=== PATIENT | male | born 1935 | race Caucasian/White ===

== ENCOUNTER 2017-09-03 08:48 | Inpatient (IN) | payer MEDICARE, OTHER ==
[~2017-09-03] VITALS: Ht 177.8 cm; Wt 104.8 kg
[~2017-09-03 08:48] MED LIST: ADULT LOW DOSE81 MG PO; ADVAIR HFA115 MCG/21 INH; ALLOPURINOL 10100 M1 PO; AZITHROMYCIN 2250 MG PO; CALCIUM 600 +1 EAC1 PO; CARVEDILOL6.25 MG; CARVEDILOL6.25 MG PO; CEFTIN 250 MG250 MG PO; COZAAR 50 MG TA50 MG PO; DESONIDE 0.05%60 M1 TOP; DULCOLAX STOOL100 MG PO; FIBER500 MG PO; FINASTERIDE5 MG PO; FLECTOR PATCH1 EA; FLEXERIL PO; FLOMAX PO; FLOMAX0.4 MG PO; FLONASE 0.05%50 MCG NASAL; FOSAMAX 70 MG T70 MG PO; FUROSEMIDE 20 M20 M1 PO; IRON325 PO; MULTIVITAMINS PO; NORCO 5-325 TA1 EACH PO; POTASSIUM PO; PREDNISONE 10 M10 MG PO; PRILOSEC 20 MG20 MG PO; PROTOPIC30 GM; SIMVASTATIN40 MG PO; SINGULAIR 10 MG10 M1 PO; SYNTHROID50 MCG PO; VITAMIN D-40400 UNIT PO; VOLTAREN GEL 1100 G1
[2017-09-03 09:00] VITALS: BP 132/71
[2017-09-03] MEDS ORDERED: SYNTHROID75 MCG PO (09:08)
[2017-09-03] MEDS ORDERED: LASIX 40 MG TAB40 M2 PO (09:09)
[2017-09-03] MEDS ORDERED: KLOR-CON 1010 MEQ PO (09:09)
[2017-09-03] MEDS ORDERED: PROLIA60 MG/1 ML SUBQ (09:10)
[2017-09-03] MEDS ORDERED: CORN SILK PO (09:10)
[2017-09-03 09:30] LABS: ABSOLUTE BASOPHILS 0.1 thou/uL (0.0-0.2); ABSOLUTE EOSINOPHILS 0.4 thou/uL (0.0-0.7); ABSOLUTE LYMPHOCYTES 2.7 thou/uL (0.8-5.3); ABSOLUTE NEUTROPHILS 3.1 thou/uL (1.6-8.1); BASOPHILS 1.4 %; HEMATOCRIT 38.2 % (42.0-52.0); HEMOGLOBIN 12.4 gm/dL (14.0-18.0); MCH 31.9 pg (26.0-34.0); MCHC 32.4 g/dL (28.0-37.0); MCV 98.3 fL (80.0-100.0); MONOCYTES 13.5 %; NUCLEATED RBCS 0 /100WBC; PLATELET COUNT* 190 thou/uL (150-400); POLYS 42.1 %; RBC 3.89 mil/uL (4.50-6.00); RDW-CV 14.8 % (10.5-14.5); WBC 7.2 thou/uL (4.0-11.0)
[2017-09-03 09:37] LABS: ANION GAP 7 mmol/L (7-16); APTT 24.7 Seconds (25.0-31.3); BUN 28 mg/dL (7-18); CALCIUM 8.6 mg/dL (8.5-10.1); CHLORIDE 105 mmol/L (98-107); CO2 27 mmol/L (21-32); GLUCOSE 103 mg/dL (70-99); INR 1.1; POTASSIUM 3.7 mmol/L (3.5-5.1); PROTIME 10.5 Seconds (9.20-11.50); SODIUM 139 mmol/L (136-145)
[2017-09-03 09:44] LABS: ALBUMIN 3.4 g/dL (3.4-5.0); ALKALINE PHOSPHATASE 109 U/L (46-116); LIPASE 89 U/L (73-393); SGOT 39 U/L (15-37); SGPT 36 U/L (30-65); TOTAL BILIRUBIN 0.5 mg/dL (<0.1-1.0); TOTAL PROTEIN 7.4 g/dL (6.4-8.2); TROPONIN-I LEVEL <0.06 ng/mL (<0.06)
[2017-09-03 10:14] LABS: URINE BILIRUBIN NEGATIVE (Negative); URINE BLOOD NEGATIVE (Negative); URINE CLARITY CLEAR; URINE COLOR YELLOW; URINE GLUCOSE-RANDOM NEGATIVE (Negative); URINE KETONES NEGATIVE (Negative); URINE LEUKOCYTES-REFLEX NEGATIVE (Negative); URINE NITRITE-REFLEX NEGATIVE (Negative); URINE PROTEIN NEGATIVE (Negative); URINE SPECIFIC GRAVITY <= 1.005 (1.005-1.030); URINE UROBILINOGEN 0.2 E.U./dl (0.2-1.0)
--- NOTE | 2017-09-03 11:58 | EKG ---
[place] [address] ELECTROCARDIOGRAM REPORT Name: KEAGAN HERNANDEZ Room: [place] [address] ADM IN .R.#: [id number] Admission: 09/03/17 Attend Phys: Thanh Zhou MD Discharge: Date of : 39 Report #: [id number] THIS REPORT FOR: //name// [facility] ED Test Date: 2017-09-03 Test Time: 09:08:38 Pat Name: KEAGAN HERNANDEZ Department: Room: [facility] Gender: Row Boss: Juanita SEN : 1935 Requested By: Homero Singer Order Number: [id number] MD: Ronald Ugarte Measurements Intervals [place] Rate: 72 P: 22 VT: 215 QRS: -27 QRSD: 145 T: 136 QT: 407 QTc: 446 Interpretive Statements Sinus rhythm Multiple premature complexes, vent & supraven Borderline prolonged VT interval Left bundle branch block Compared to ECG 11/24/2015 16:24:06 pvc now noted Electronically Signed On 09-03-2017 11:58:01 SOCIAL WORK MANAGER by Ronald Ugarte [email or web address] <ELECTRONICALLY SIGNED> By: Ronald Ugarte MD, [facility] 09/03/17 1158 0908 0908 Ronald Ugarte MD, [facility] /EPI
[2017-09-03 14:22] VITALS: BP 137/62
[2017-09-03 15:35] VITALS: BP 111/54
[2017-09-03 16:00] VITALS: BP 121/63
--- NOTE | 2017-09-03 16:14 | EKG ---
[place] [address] ELECTROCARDIOGRAM REPORT Name: KEAGAN HERNANDEZ Room: [place] [address] ADM IN .R.#: [id number] Admission: 09/03/17 Attend Phys: Thanh Zhou MD Discharge: Date of : 39 Report #: [id number] THIS REPORT FOR: //name// [facility] ED Test Date: 2017-09-03 Test Time: 09:33:02 Pat Name: KEAGAN HERNANDEZ Department: Room: [facility] Gender: M Morning Caregiver: BASSEM : 1935 Requested By: Homero Singer Order Number: [id number] MD: Ronald Ugarte Measurements Intervals [place] Rate: 68 P: 28 FL: 222 QRS: -27 QRSD: 147 T: 138 QT: 415 QTc: 442 Interpretive Statements Sinus rhythm Atrial premature complex Prolonged FL interval Left bundle branch block Compared to ECG 09/03/2017 09:08:38 pvc no longer seen Electronically Signed On 09-03-2017 16:14:08 CONTRACTS SPECIALIST by Ronald Ugarte [email or web address] <ELECTRONICALLY SIGNED> By: Ronald Ugarte MD, [facility] 09/03/17 1614 0933 0933 Ronald Ugarte MD, [facility] /EPI
--- NOTE | 2017-09-03 19:43 | NUR ---
REPORT RECEIVED FROM Guanaco EUBANKS IN E.D. AT 1513. PT ARRIVED TO TELEMETRY AT 1550. PT IN BED, BED IN LOW AND LOCKED POSITION, CALL BUTTON AND PERSONAL ITEMS IN PT REACH. AT SIDE. PT A&O X4, ENVIRONMENTAL SCIENTISTS TRACING NSR, LBBB AND OCC. PAC'S. VSS ON RA, AFEBRILE, PERRL, SKIN INTACT WITH SCATTERED BRUISING AND SKIN DISCOLORATION. UP SBA, STEADY GAIT, OCC. USES CANE R/T BACK PAIN. PT HAS BACK STIMULATOR, PLACED 2016. RIGHT EAR HEALED WITH SCAR FROM SKIN CANCER REMOVAL. ADMISSION AND SEPSIS SCREEN COMPLETED. MEDS RECONCILED. LCTAB. PT LAUGHING, SMILING, LIKES TO TELL JOKES. LEFT WRIST 22 GAUGE IV SALINE LOCKED. PT DENIES PAIN. SCANT EDEMA IN LE. REPORT TO BATCH TESTER FOR CONTINUED CARES.
[2017-09-03 20:00] VITALS: BP 117/61
[2017-09-04] VITALS: BP 100/52
--- NOTE | 2017-09-04 03:31 | NUR ---
ASSUMED PT CARE AT 1930, PT IS A&OX4, PT DENIES ANY PAIN OR NEEDS AT THIS TIME. PT IS TRACING NSR ON THE MONITOT WITH A 1DAVB AND OCCASIONAL PAC'S PT IS ON RA SATTING MID TO HIGH 90'S. PT HAD A NEW IV PLACED DUE TO PHELBITIS. PT SLEPT WELL THOUGHOUT THE NIGHT. BED IN LOW POSITION, CALL LIGHT IN REACH. HOURLY ROUNDING COMPLETED FOR PT SAFETY.
[2017-09-04 04:00] VITALS: BP 104/45
[2017-09-04 05:34] LABS: ABSOLUTE BASOPHILS 0.1 thou/uL (0.0-0.2); ABSOLUTE EOSINOPHILS 0.4 thou/uL (0.0-0.7); ABSOLUTE LYMPHOCYTES 2.6 thou/uL (0.8-5.3); ABSOLUTE MONOCYTES 0.8 thou/uL (0.0-1.2); ABSOLUTE NEUTROPHILS 2.6 thou/uL (1.6-8.1); BASOPHILS 1.3 %; CALCIUM 8.9 mg/dL (8.5-10.1); EOSINOPHILS 6.5 %; HEMOGLOBIN 11.4 gm/dL (14.0-18.0); LYMPHOCYTES 39.7 %; MCH 32.7 pg (26.0-34.0); MCHC 33.7 g/dL (28.0-37.0); MCV 97.1 fL (80.0-100.0); MONOCYTES 12.8 %; NUCLEATED RBCS 0 /100WBC; PLATELET COUNT* 159 thou/uL (150-400); POLYS 39.7 %; POTASSIUM 3.9 mmol/L (3.5-5.1); WBC 6.5 thou/uL (4.0-11.0)
[2017-09-04 08:11] VITALS: BP 104/45
[2017-09-04 09:30] VITALS: BP 120/59
[2017-09-04 13:09] VITALS: BP 104/45
[2017-09-04] MEDS ORDERED: FLOMAX0.4 MG PO ×2 (13:53→14:04)
[2017-09-04 14:39] VITALS: BP 104/45
--- NOTE | 2017-09-04 16:32 | NUR ---
ASSUMED CARES AT BEDSIDE REPORT AT 0700. PT IN BED, BED IN LOW AND LOCKED POSITION, CALL BUTTON AND PERSONAL ITEMS IN PERSONAL REACH. FALL PRECAUTIONS IN PLACE. PT A&O X4, LAUGHING, SMILING, TALKATIVE. LICENSE DISTRIBUTOR TRACING NSR/BBB/1 DG AVB. LCTAB, VSS ON RA, AFEBRILE, SKIN INTACT, PT DENIES PAIN, PT UP AT [place], CANE USED OCC. R/T CHRONIC BACK PAIN. RIGHT WRIST 20 GAUGE IV PATENT TO FLUSH, NO S/S OF INFECTION, SALINE LOCKED. PT CLEARED FOR DISCHARGE WITH FOLLOW UP APPTS FOR CARDIOLOGY AND PCP. AT SIDE. IV AND TELE REMOVED, PT BELONGINGS PACKED, ROOM CHECKED. PT EDUCATED ON DISCHARGE ORDERS AND STROKE SIGNS/SYMPTOMS - RISKS. PT TAKEN BY W/C WITH NURSING STAFF TO FRONT OF HOSPITAL WITH SPOUSE TO GO HOME IN CAR. PT DISCHARGE SUCCESSFUL AND COMPLETED AT 1435. PT STABLE AT DISCHARGE. NURSE ASSISTED PT PUTTING ON SEATBELT IN CAR.
--- NOTE | 2017-09-04 16:38 | CON ---
[address] [address] CONSULTATION Name: KEAGAN HERNANDEZ Room: [address] IN M.R.#: [id number] Admission: 09/03/17 Attend Phys: Thanh Zhou MD Discharge: Date of : 39 Report #: [id number] THIS REPORT FOR: //name// CC: Thanh Sarmiento DO DATE OF SERVICE: 09/03/2017 PRIMARY CARE PHYSICIAN: Gail Sarmiento MD HISTORY OF PRESENT ILLNESS: The patient is an 82-year-old white male who I was asked to see in the Emergency Room today after he had a lightheaded spell. The history is obtained from the patient as well as from some old records. The patient states that he has had a long history of congestive heart failure. He apparently had an episode of atrial fibrillation back in the . In 2004, he was found to have an ejection fraction of 25% and had a defibrillator implanted at [facility]. He notes he was exercising at one point and the defibrillator actually shocked as hard. However, he had no previous history of syncope. In 2007, he had apparently 12 shocks from his defibrillator. He was told there is a lead fracture. Echocardiogram showed ejection fraction of 50%. The doctors at [facility] apparently decided to cap his lead and removed the defibrillator generator. He has done well since that time. He actually went to see my partner, Dr. Owens last fall for cardiac followup. He had an echocardiogram last April here at [place] that showed an ejection fraction of 35%. The patient notes recently he has been doing well with no significant chest pain, shortness of breath, palpitations. This morning, he was sitting in a chair when he suddenly felt nauseated and lightheaded. It lasted about a minute and resolved. However, he is still sitting in the chair and later again had an episode where he felt as if he was going to pass out. His brought him to the Emergency Room today. While in the Emergency Room, the patient was noted to have an episode of sinus bradycardia down into the 30s. This resolved spontaneously. He was admitted for further evaluation and treatment. He denies recent vomiting, bleeding, diarrhea. PAST MEDICAL HISTORY: Otherwise significant for knee arthroscopy, shoulder surgery, cataract extraction. He has history of chronic kidney disease. He has a nerve stimulator in place. He has a history of hypertension and hyperlipidemia. MEDICATIONS: Consists of losartan, aspirin, carvedilol, allopurinol, Synthroid, potassium, Lasix for chronic edema, simvastatin, Proscar, omeprazole. ALLERGIES: He has intolerance to from [place] [address] CONSULTATION Name: KEAGAN HERNANDEZ Room: [address] IN .R.#: [id number] Admission: 09/03/17 Attend Phys: Thanh Zhou MD Discharge: Date of : 37 Report #: [id number] FAMILY HISTORY: Negative for heart disease. SOCIAL HISTORY: He is . He and his live in [place]. He is retired from the [employer]. He also was a mail deliverer. Quit smoking years ago, rarely drinks alcohol. REVIEW OF SYSTEMS: He has had no history of stroke, asthma. He has had a peptic ulcer in the past, chronic kidney disease. He had a skin cancer removed. No psychiatric illness. No chronic skin condition. PHYSICAL EXAMINATION: GENERAL: Revealed an elderly large male lying in bed. He appeared in no acute distress. VITAL SIGNS: He had a blood pressure of 120/60, pulse is 60. He is afebrile. HEENT: He was anicteric. Conjunctivae pink. Mucous membranes moist. NECK: Veins do not appear distended. No carotid bruits. CHEST: Clear to auscultation. CARDIOVASCULAR: Regular rate without murmur. ABDOMEN: Obese, soft, nontender. EXTREMITIES: Had pitting edema up to the mid tibial area. Dorsalis pedis pulse cannot be palpated. SKIN: Cool and dry. NEUROLOGIC: Nonfocal. LABORATORY DATA: His ECG showed a sinus rhythm with a PAC. There was a left bundle branch block. His workup in the Emergency Room today, he had portable chest x-ray that showed cardiomegaly, single defibrillator lead in place. No pulmonary edema. His lab work, sodium 139, BUN 28, creatinine 2.0, which is unchanged from 2013. Liver function studies are normal. Troponin 0.06. TSH 1.6, T4 1.2. White blood cell count 7.2, hemoglobin 12.4. IMPRESSION AND RECOMMENDATIONS: 1. Lightheaded spell. Possibly related bradycardia. I would recommend discontinuing the small dose of beta edgar. If he develops symptomatic bradycardia, he would require pacemaker. 2. Cardiomyopathy. The patient has been on the beta edgar, ARB and diuretics. 3. Chronic kidney disease. 4. Chronic back pain. The patient has a stimulator in place. 5. Obesity. 6. Previous history of atrial fibrillation. <ELECTRONICALLY SIGNED> By: Ronald Ugarte MD, [facility] 09/04/17 1638 1402 [id number] Chel Ugarte MD, FACC /nt
== END 2017-09-04 14:25 | disposition home or self-care (01) | DRG 309 ==
LOC: M.ERS 08:48 → M.TBA-ER 10:25 → M.2W 10:25
PROVIDERS: Emergency Medicine Emergency Medical Services; ADMIT Internal Medicine
DX: R00.1 Bradycardia, unspecified (principal); N18.4 Chronic kidney disease, stage 4 (severe); I13.0 Hypertensive heart and chronic kidney disease with heart failure and stage 1 through stage 4 chronic kidney disease, or unspecified chronic kidney disease; I50.22 Chronic systolic (congestive) heart failure; E78.5 Hyperlipidemia, unspecified; I42.9 Cardiomyopathy, unspecified; I48.91 Unspecified atrial fibrillation; G89.29 Other chronic pain; M54.9 Dorsalgia, unspecified; E66.9 Obesity, unspecified; E03.9 Hypothyroidism, unspecified; M81.0 Age-related osteoporosis without current pathological fracture; Z87.891 Personal history of nicotine dependence; Z95.810 Presence of automatic (implantable) cardiac defibrillator; Z68.33 Body mass index [BMI] 33.0-33.9, adult; Z79.82 Long term (current) use of aspirin; Z98.49 Cataract extraction status, unspecified eye; Z79.899 Other long term (current) drug therapy; Z88.8 Allergy status to other drugs, medicaments and biological substances

== ENCOUNTER → 2017-12-01 | Outpatient (CLI) | payer MEDICARE, OTHER ==
[~2017-12-01] MED LIST changes: +CORN SILK PO; +KLOR-CON 1010 MEQ PO; +LASIX 40 MG TAB40 M2 PO; +PEPCID40 MG PO; +PROLIA60 MG/1 ML SUBQ; +SODIUM BICARBO650 M3 PO; +SYNTHROID75 MCG PO; +TOPROL XL25 MG PO; +XARELTO15 MG PO; +ZYRTEC 10 MG TA10 MG PO
== END ==
LOC: M.RAD 11:12
DX: M43.17 Spondylolisthesis, lumbosacral region (principal); M85.89 Other specified disorders of bone density and structure, multiple sites; M81.0 Age-related osteoporosis without current pathological fracture; M16.0 Bilateral primary osteoarthritis of hip

== ENCOUNTER → 2018-02-25 | Outpatient (CLI) | payer MEDICARE, OTHER ==
--- NOTE | 2018-02-25 13:08 | 2DMMODE ---
[place] [address] 2 D/M-MODE ECHOCARDIOGRAM Name: KEAGAN HERNANDEZ Room: [facility]#: [id number] Admission: 02/25/18 Attend Phys: Tamela Hilario, Discharge: Date of : 39 Date of Service: 02/25/18 1308 Report #: [id number] THIS REPORT FOR: //name// APPROVED REPORT Study performed: 02/25/2018 09:13:35 EXAM: Comprehensive 2D, Doppler, and color-flow Echocardiogram Patient Location: Out-Patient Status: routine BSA: 2.15 HR: 84 bpm BP: 117/62 mmHg Other Information Study Quality: Good Indications Cardiomyopathy 2D Dimensions IVSd: 10.18 (7-11mm) LVOT Diam: 20.45 (18-24mm) LVDd: 47.14 mm PWd: 11.25 (7-11mm) Ascending Ao: 30.72 (22-36mm) LVDs: 36.45 (25-40mm) Aortic Root: 32.92 mm Volumes Left Atrial Volume (Systole) LA ESV Index: 17.90 mL/m2 Aortic Valve AoV Peak Baltazar.: 0.82 m/s AO Peak Gr.: 2.68 mmHg LVOT Max P.48 mmHg AO Mean Gr.: 1.49 mmHg LVOT Mean P.43 mmHg LVOT Max V: 0.79 m/s AO V2 VTI: 13.02 cm LVOT Mean V: 0.56 m/s TREVOR (VTI): 2.97 cm2 LVOT V1 VTI: 11.76 cm Mitral Valve E/A Ratio: 0.59 MV Decel. Time: 256.92 ms MV E Max Baltazar.: 0.52 m/s MV PHT: 74.[place] [address] 2 D/M-MODE ECHOCARDIOGRAM Name: KEAGAN HERNANDEZ Room: [facility]#: [id number] Admission: 02/25/18 Attend Phys: Tamela Hilario, Discharge: Date of : 39 Date of Service: 02/25/18 1308 Report #: [id number] MVA (PHT): 2.95 cm2 TDI E/Lateral E': 8.67 E/Medial E': 8.67 Medial E' Baltazar.: 0.06 m/s Lateral E' Baltazar.: 0.06 m/s Pulmonary Valve PV Peak Baltazar.: 0.91 m/s PV Peak Gr.: 3.32 mmHg Tricuspid Valve RAP Estimate: 5.00 mmHg TR Peak Gr.: 20.67 mmHg RVSP: 25.67 mmHg PA Pressure: 25.67 mmHg Left Ventricle The left ventricle is normal size. paradoxical septum consistent with a paced rhythm There is global hypokinesis of the left ventricle. There is normal left ventricular wall thickness. Left ventricular systolic function is moderately decreased. LVEF is 30-35%. The left ventricular diastolic function is normal. Right Ventricle The right ventricle is normal size. The right ventricular systolic function is normal. Pacemaker lead is present in the right ventricle. Atria The left atrium size is normal. The right atrium size is normal. Aortic Valve The aortic valve is normal in structure. No aortic regurgitation is present. There is no aortic valvular stenosis. Mitral Valve The mitral valve is normal in structure. Mild mitral regurgitation. No evidence of mitral valve stenosis. Tricuspid Valve The tricuspid valve is normal in structure. Mild tricuspid regurgitation. estimated pa pressure 30 mm Hg Pulmonic Valve The pulmonary valve is normal in structure. There is no pulmonic [place] [address] 2 D/M-MODE ECHOCARDIOGRAM Name: KEAGAN HERNANDEZ Room: [facility]#: [id number] Admission: 02/25/18 Attend Phys: Tamela Hilario, Discharge: Date of : 39 Date of Service: 02/25/18 1308 Report #: [id number] Great Vessels The aortic root is normal in size. IVC is not well visualized. Pericardium There is no pericardial effusion. <Conclusion> LVEF is 30-35%. paradoxical septum consistent with a paced rhythm There is global hypokinesis of the left ventricle. Mild mitral regurgitation. Mild tricuspid regurgitation. estimated pa pressure 30 mm Hg <ELECTRONICALLY SIGNED> By: Ronald Ugarte MD, [facility] 02/25/18 1308 1308 1308 Ronald Ugarte MD, FACC /INF
== END ==
LOC: M.CRD 08:41
DX: I08.1 Rheumatic disorders of both mitral and tricuspid valves (principal); I50.22 Chronic systolic (congestive) heart failure; I42.8 Other cardiomyopathies

== ENCOUNTER 2018-04-05 07:20 | Emergency (ER) | payer MEDICARE, OTHER ==
[~2018-04-05] VITALS: Ht 177.8 cm; Wt 97.5 kg
[~2018-04-05 07:20] MED LIST changes: -PEPCID40 MG PO; -SODIUM BICARBO650 M3 PO; -TOPROL XL25 MG PO; -XARELTO15 MG PO; -ZYRTEC 10 MG TA10 MG PO
[2018-04-05] MEDS ORDERED: XARELTO15 MG PO (07:37)
[2018-04-05] MEDS ORDERED: TOPROL XL25 MG PO (07:37)
[2018-04-05] MEDS ORDERED: SODIUM BICARBO650 M3 PO (07:41)
[2018-04-05 08:00] LABS: HEMATOCRIT 35.4 % (42.0-52.0); HEMOGLOBIN 11.8 gm/dL (14.0-18.0); MCHC 33.4 g/dL (28.0-37.0); MCV 95.7 fL (80.0-100.0); MPV 9.4 fl. (7.2-11.1); NUCLEATED RBCS 0 /100WBC; PLATELET COUNT* 212 thou/uL (150-400); RDW-CV 14.7 % (10.5-14.5); WBC 7.8 thou/uL (4.0-11.0)
[2018-04-05] MEDS ORDERED: ZYRTEC 10 MG TA10 MG PO (08:08)
[2018-04-05] MEDS ORDERED: PEPCID40 MG PO (08:08)
[2018-04-05 08:25] LABS: CALCIUM 8.2 mg/dL (8.5-10.1); CREATININE 2.3 mg/dL (0.6-1.3); POTASSIUM 3.9 mmol/L (3.5-5.1)
[2018-04-05 08:28] LABS: ALBUMIN 2.9 g/dL (3.4-5.0); TOTAL BILIRUBIN 0.5 mg/dL (<0.1-1.0); TOTAL PROTEIN 6.3 g/dL (6.4-8.2)
[2018-04-05 08:48] VITALS: BP 117/51
[2018-04-05 09:37] LABS: ABSOLUTE BASOPHILS 0.1 thou/uL (0.0-0.2); ABSOLUTE EOSINOPHILS 1.2 thou/uL (0.0-0.7); ABSOLUTE LYMPHOCYTES 1.8 thou/uL (0.8-5.3); ABSOLUTE MONOCYTES 0.9 thou/uL (0.0-1.2); ABSOLUTE NEUTROPHILS 3.7 thou/uL (1.6-8.1); ATYPICAL LYMPHS 4 %; PLATELET ESTIMATE ADEQUATE
== END 2018-04-05 08:48 | disposition home or self-care (01) ==
LOC: M.ERS 07:20
PROVIDERS: Family Medicine
DX: L29.9 Pruritus, unspecified (principal); R21 Rash and other nonspecific skin eruption; L53.9 Erythematous condition, unspecified; I50.9 Heart failure, unspecified; N18.4 Chronic kidney disease, stage 4 (severe); M81.0 Age-related osteoporosis without current pathological fracture; Z87.891 Personal history of nicotine dependence; Z88.8 Allergy status to other drugs, medicaments and biological substances

== ENCOUNTER 2019-08-18 11:10 | Inpatient (IN) | payer MEDICARE, OTHER ==
[~2019-08-18] VITALS: Ht 152.4 cm; Wt 101.2 kg
--- NOTE | ~2019-08-18 | PROC ---
[address] [address] PROCEDURE REPORT Name: KEAGAN HERNANDEZ Room: [address] IN .R.#: [id number] Admission: 08/18/19 Attend Phys: Keagan Pérez MD Discharge: 08/21/19 Date of : 37 Report #: [id number] THIS REPORT FOR: //name// For GI report, please see the Provation report in Perceptive 7 content. By: 0639Medical Records Staff RAFAELA /CASSIE
[~2019-08-18 11:10] MED LIST changes: +PEPCID40 MG PO; -PRILOSEC 20 MG20 MG PO; +PRILOSEC PO; +SODIUM BICARBO650 M3 PO; +TOPROL XL25 MG PO; +VITAMIN D-40010 MCG PO; -VITAMIN D-40400 UNIT PO; +XARELTO15 MG PO; +ZYRTEC 10 MG TA10 MG PO
[2019-08-18 11:19] VITALS: BP 136/58
[2019-08-18 12:22] LABS: ABSOLUTE EOSINOPHILS 0.2 thou/uL (0.0-0.7); ABSOLUTE LYMPHOCYTES 2.5 thou/uL (0.8-5.3); ABSOLUTE MONOCYTES 0.6 thou/uL (0.0-1.2); ABSOLUTE NEUTROPHILS 4.1 thou/uL (1.6-8.1); BASOPHILS 0.6 %; EOSINOPHILS 2.4 %; HEMATOCRIT 36.5 % (42.0-52.0); HEMOGLOBIN 12.1 gm/dL (14.0-18.0); LYMPHOCYTES 33.4 %; MCH 32.2 pg (26.0-34.0); MCHC 33.3 g/dL (28.0-37.0); MCV 96.7 fL (80.0-100.0); MONOCYTES 8.5 %; MPV 9.5 fl. (7.2-11.1); NUCLEATED RBCS 0 /100WBC; PLATELET COUNT* 156 thou/uL (150-400); POLYS 55.1 %; RBC 3.77 mil/uL (4.50-6.00); RDW-CV 14.2 % (10.5-14.5); WBC 7.4 thou/uL (4.0-11.0)
[2019-08-18 12:43] LABS: CALCIUM 8.6 mg/dL (8.5-10.1); CREATININE 2.1 mg/dL (0.6-1.3); POTASSIUM 4.3 mmol/L (3.5-5.1)
[2019-08-18 12:48] LABS: ALBUMIN 3.4 g/dL (3.4-5.0); TOTAL BILIRUBIN 0.3 mg/dL (<0.1-1.0)
[2019-08-18 14:10] VITALS: BP 112/52
[2019-08-18 14:30] VITALS: BP 120/61
[2019-08-18 15:00] VITALS: BP 113/51
--- NOTE | 2019-08-18 15:03 | EKG ---
[place] [address] ELECTROCARDIOGRAM REPORT Name: KEAGAN HERNANDEZ Room: [address] ADM IN .R.#: [id number] Admission: 08/18/19 Attend Phys: Keagan Pérez MD Discharge: Date of : 37 Report #: [id number] THIS REPORT FOR: //name// [facility] ED Test Date: 2019-08-18 Test Time: 11:32:53 Pat Name: KEAGAN HERNANDEZ Department: Room: [facility] Gender: M Senior Financial: : 1935 Requested By: Homero Singer Order Number: [id number] MD: Ronald Ugarte Measurements Intervals [place] Rate: 82 P: 46 IL: 210 QRS: -28 QRSD: 142 T: 128 QT: 412 QTc: 482 Interpretive Statements Sinus rhythm Atrial premature complexes Left bundle branch block Compared to ECG 09/03/2017 09:33:02 First degree AV block no longer present Electronically Signed On 08-18-2019 15:02:24 SYSTEM SPECIALIST by Ronald Ugarte [email or web address] <ELECTRONICALLY SIGNED> By: Ronald Ugarte MD, [facility] 08/18/19 1502 1132 1132 Ronald Ugarte MD, [facility] /EPI
[2019-08-18] MEDS ORDERED: TYLENOL WITH CO1 TA1 PO (15:07)
[2019-08-18] MEDS ORDERED: ACETAMINOPHEN500 MG PO (15:09)
[2019-08-18 16:16] LABS: HEMATOCRIT 34.6 % (42.0-52.0); HEMOGLOBIN 11.7 gm/dL (14.0-18.0)
[2019-08-18 19:45] VITALS: BP 126/68
[2019-08-19] VITALS: BP 120/53
[2019-08-19 05:45] LABS: HEMATOCRIT 28.9 % (42.0-52.0); HEMOGLOBIN 9.8 gm/dL (14.0-18.0); MCH 32.6 pg (26.0-34.0); MCHC 34.1 g/dL (28.0-37.0); MCV 95.5 fL (80.0-100.0); MPV 10.1 fl. (7.2-11.1); RBC 3.02 mil/uL (4.50-6.00); RDW-CV 14.2 % (10.5-14.5); WBC 6.3 thou/uL (4.0-11.0)
[2019-08-19 06:02] LABS: CALCIUM 7.3 mg/dL (8.5-10.1); CREATININE 1.9 mg/dL (0.6-1.3); MAGNESIUM 1.8 mg/dL (1.8-2.4); POTASSIUM 4.2 mmol/L (3.5-5.1)
[2019-08-19 08:30] VITALS: BP 104/43
[2019-08-19 11:53] VITALS: BP 121/40
[2019-08-19 18:14] VITALS: BP 129/64
[2019-08-19 19:50] VITALS: BP 121/66
[2019-08-19 20:36] LABS: HEMATOCRIT 34.9 % (42.0-52.0)
[2019-08-20] VITALS (7 sets, daily range): BP systolic 100–128; BP diastolic 39–90
[2019-08-20 05:18] LABS: HEMATOCRIT 30.3 % (42.0-52.0); HEMOGLOBIN 10.3 gm/dL (14.0-18.0); MCH 32.2 pg (26.0-34.0); MCV 94.7 fL (80.0-100.0); MPV 9.1 fl. (7.2-11.1); RBC 3.19 mil/uL (4.50-6.00); RDW-CV 14.1 % (10.5-14.5); WBC 6.9 thou/uL (4.0-11.0)
[2019-08-20 06:04] LABS: POTASSIUM 4.4 mmol/L (3.5-5.1)
[2019-08-21 04:44] VITALS: BP 116/65
[2019-08-21 05:08] LABS: HEMATOCRIT 32.3 % (42.0-52.0); HEMOGLOBIN 10.9 gm/dL (14.0-18.0)
[2019-08-21 08:00] VITALS: BP 105/61
[2019-08-21 10:09] VITALS: BP 105/61
[2019-08-21 11:13] VITALS: BP 105/61
[2019-08-21 11:14] VITALS: BP 105/61
--- NOTE | 2019-08-22 09:30 | CON ---
[address] [address] CONSULTATION Name: KEAGAN HERNANDEZ Room: [address] IN M.R.#: [id number] Admission: 08/18/19 Attend Phys: Keagan Pérez MD Discharge: 08/21/19 Date of : 37 Report #: [id number] THIS REPORT FOR: //name// CC: Keagan Sarmiento DO DICTATED BY: Janey Bruner [facility] DATE OF SERVICE: 08/19/2019 Please note at the time of this dictation, the patient was seen and physically examined by myself. REASON FOR CONSULTATION: Melanotic stool and some bright red bloody stools. HISTORY OF PRESENT ILLNESS: This is a pleasant 84-year-old gentleman, who states that on Friday evening, the patient noted to have a very black tarry stool. He states normally his bowels move once a day and they are soft and formed, this was a little bit looser. He then was awakened, later on in the nighttime and had to get up and use the bathroom and again had a very large black tarry stool. With, he noted a little bit of some bright red blood at the very end. Again, he had 2 more of these similar type stools the next morning, which is unusual for him, that were very loose and very black and tarry in appearance, prompting him to come in to be seen in the Emergency Room. He denied any nausea, vomiting, any abdominal pain, no weight loss. He does take iron supplementation daily. He has not had any decreased appetite. He denies any NSAID use. He denies any acid reflux issues. However, he states in the past, he has had a previous peptic ulcer. The patient was last seen by us in 2011. He had a 1 cm hiatal hernia and he was dilated for dysphagia with a 54-Micronesian with no resistance noted. He has had no complaints of any dysphagia at that time. Last colonoscopy was in 2009. He had external hemorrhoids and diverticulosis was noted. He states that he has been doing well and has had no issues. Hemoglobin on admission was 11.7. He has dropped down to 9.8. He has had no more melanotic stool since his arrival to the hospital. ALLERGIES: METHANOL, GOLD KENNY FOOT. MEDICATIONS FROM HOME: Include Xarelto, Toprol, Zyloprim, iron, Zocor, Synthroid, fiber Synthroid, Prolia, vitamin D, Cozaar, Dulcolax, potassium, Lasix, omeprazole 20 and a multivitamin. PAST MEDICAL HISTORY: Stage 4 kidney disease, congestive heart failure, atrial fibrillation, on anticoagulant therapy, osteoporosis. PAST SURGICAL HISTORY: He had a left rotator [place] [address] CONSULTATION Name: KEAGAN HERNANDEZ Room: [address] IN [facility]#: [id number] Admission: 08/18/19 Attend Phys: Keagan Pérez MD Discharge: 08/21/19 Date of : 37 Report #: [id number] arthroscopic knee surgeries, bone spur removed from his right shoulder. He did have a defibrillator in place that was recently removed. He still the leads in place, however. He does have a back stimulator in place as well and 5 fractures noted in his back in 2017. FAMILY HISTORY: Positive for his daughter for uterine cancer. SOCIAL HISTORY: Denies any alcohol, past use of tobacco many years ago and denies any illegal drug use. REVIEW OF SYSTEMS: Twelve-point review of systems is essentially negative except what is mentioned in the HPI. PHYSICAL EXAMINATION: VITAL SIGNS: Temperature 36.7, pulse 74, respirations 15, blood pressure 104/43. HEART: Regular rate and rhythm. LUNGS: Clear. ABDOMEN: Soft, positive bowel sounds in all 4 quadrants with no masses or tenderness noted. LABORATORY DATA: Hemoglobin this morning is 9.8, white count is 6.3, platelets are 151, BUN is 32, creatinine 1.9, GFR of 34. IMPRESSION: 1. Melanotic stool. 2. Bright red blood per rectum. 3. Anticoagulant therapy, Xarelto, atrial fibrillation. 4. Chronic kidney disease. 4. Family history of uterine cancer, daughter. PLAN: 1. Continue Protonix drip. 2. EGD today with Dr. Atwood. 3. Further recommendations to be made once the procedure has been performed. Thank you for allowing us to participate in this patient's care. Please do not hesitate to call with any questions in regard to this consult. <ELECTRONICALLY SIGNED> By: Corey Atwood DO 08/22/19 0930 1152 1642Corey Atwood DO /nt
== END 2019-08-21 11:10 | disposition home or self-care (01) | DRG 393 ==
LOC: M.ERS 11:10 → M.2W 12:59 → M.TBA-ER 12:59 → M.2W 14:19
PROVIDERS: Emergency Medicine Emergency Medical Services; ADMIT Internal Medicine
PROC: 0DJ08ZZ Inspection of Upper Intestinal Tract, Via Natural or Artificial Opening Endoscopic (ICD-10-PCS; principal; 2019-08-19)
PROC: 0DBH8ZZ Excision of Cecum, Via Natural or Artificial Opening Endoscopic (ICD-10-PCS; principal; 2019-08-19)
DX: D12.0 Benign neoplasm of cecum (principal); N17.0 Acute kidney failure with tubular necrosis; D68.32 Hemorrhagic disorder due to extrinsic circulating anticoagulants; I50.22 Chronic systolic (congestive) heart failure; N18.4 Chronic kidney disease, stage 4 (severe); D68.69 Other thrombophilia; T45.515A Adverse effect of anticoagulants, initial encounter; K64.8 Other hemorrhoids; I48.91 Unspecified atrial fibrillation; K27.9 Peptic ulcer, site unspecified, unspecified as acute or chronic, without hemorrhage or perforation; M81.0 Age-related osteoporosis without current pathological fracture; E03.9 Hypothyroidism, unspecified; K64.4 Residual hemorrhoidal skin tags; K44.9 Diaphragmatic hernia without obstruction or gangrene; G89.29 Other chronic pain; M54.9 Dorsalgia, unspecified; Z79.899 Other long term (current) drug therapy; Z91.048 Other nonmedicinal substance allergy status; Z87.891 Personal history of nicotine dependence; Z79.01 Long term (current) use of anticoagulants; Z80.8 Family history of malignant neoplasm of other organs or systems; Z86.010 Personal history of colon polyps; Y92.009 Unspecified place in unspecified non-institutional (private) residence as the place of occurrence of the external cause

== ENCOUNTER → 2020-04-11 | Outpatient (CLI) | payer MEDICARE, OTHER ==
[~2020-04-11] MED LIST changes: +ACETAMINOPHEN500 MG PO; +NON-ASPIRIN EX500 M1 PO; +OMEPRAZOLE 20 M20 M1 PO; +TYLENOL WITH CO1 TA1 PO
[2020-04-11 11:09] LABS: ABSOLUTE BASOPHILS 0.1 thou/uL (0.0-0.2); ABSOLUTE EOSINOPHILS 0.5 thou/uL (0.0-0.7); ABSOLUTE LYMPHOCYTES 2.9 thou/uL (0.8-5.3); ABSOLUTE MONOCYTES 0.7 thou/uL (0.0-1.2); ABSOLUTE NEUTROPHILS 3.1 thou/uL (1.6-8.1); BASOPHILS 0.9 %; EOSINOPHILS 6.5 %; HEMATOCRIT 39.7 % (42.0-52.0); HEMOGLOBIN 13.4 gm/dL (14.0-18.0); MCH 32.8 pg (26.0-34.0); MCHC 33.8 g/dL (28.0-37.0); MCV 96.9 fL (80.0-100.0); MONOCYTES 9.7 %; NUCLEATED RBCS 0 /100WBC; PLATELET COUNT* 212 thou/uL (150-400); POLYS 42.9 %; RBC 4.09 mil/uL (4.50-6.00); RDW-CV 14.3 % (10.5-14.5); WBC 7.3 thou/uL (4.0-11.0)
[2020-04-11 11:18] LABS: APTT 29.6 Seconds (25.0-31.3); INR 1.1; PROTIME 11.4 Seconds (9.20-11.50)
[2020-04-11 11:28] LABS: ALBUMIN 3.8 g/dL (3.4-5.0); CALCIUM 8.6 mg/dL (8.5-10.1); CREATININE 2.2 mg/dL (0.6-1.3); POTASSIUM 4.1 mmol/L (3.5-5.1); TOTAL BILIRUBIN 0.4 mg/dL (<0.1-1.0); TOTAL PROTEIN 7.3 g/dL (6.4-8.2)
[2020-04-11 12:39] LABS: ESR (SEDRATE) 15 mm/hr (0-20)
--- NOTE | 2020-04-11 16:30 | EKG ---
[place] [address] ELECTROCARDIOGRAM REPORT Name: KEAGAN HERNANDEZ Room: [facility]#: [id number] Admission: 04/11/20 Attend Phys: Corey Mendieta Discharge: Date of : 39 Date of Service: 04/11/20 1045 Report #: [id number] THIS REPORT FOR: //name// [facility] Test Date: 2020-04-11 Test Time: 10:45:07 Pat Name: KEAGAN HERNANDEZ Department: Room: Gender: Laboratory Analyst: : 1935 Requested By: Corey Rojo Order Number: [id number] MD: Renan Nieves Measurements Intervals [place] Rate: 73 P: 50 MA: 133 QRS: 0 QRSD: 116 T: 46 QT: 427 QTc: 471 Interpretive Statements Ventricular-paced rhythm No further analysis attempted due to paced rhythm Compared to ECG 08/18/2019 11:32:53 Sinus rhythm no longer present Atrial premature complex(es) no longer present Left bundle-branch block no longer present Electronically Signed On 04-11-2020 16:29:59 CDT by Renan Nieves [email or web address] <ELECTRONICALLY SIGNED> By: Renan Nieves MD, FAC 04/11/20 1629 1045 1045 Renan Nieves MD, FAC /EPI
[2020-04-12 03:06] LABS: GLYCOHEMOGLOBIN (HGB A1C) 5.5 % (4.8-5.6)
== END ==
LOC: M.LAB 07:20
PROVIDERS: ATTEND Orthopaedic Surgery
DX: Z01.812 Encounter for preprocedural laboratory examination (principal); M17.12 Unilateral primary osteoarthritis, left knee; Z51.81 Encounter for therapeutic drug level monitoring; Z20.828 Contact with and (suspected) exposure to other viral communicable diseases; E11.9 Type 2 diabetes mellitus without complications; Z79.01 Long term (current) use of anticoagulants; Z86.010 Personal history of colon polyps

== ENCOUNTER 2020-04-20 06:31 | Observation (INO) | payer MEDICARE, OTHER ==
[~2020-04-20] VITALS: Ht 177.8 cm; Wt 93.4 kg
--- NOTE | ~2020-04-20 | OP ---
[facility] [address] [place] [address] OPERATIVE REPORT Name: KEAGAN HERNANDEZ Room: [address] IN M.R.#: [id number] Admission: 04/20/20 Attend Phys: Ching Flood Discharge: Date of : 39 Report #: [id number] THIS REPORT FOR: //name// cc: Gail Sarmiento Linda J. DO ~ CC: Corey Beaver DICTATED BY: Haris Archibald DO DATE OF SERVICE: 04/20/2020 PREOPERATIVE DIAGNOSIS: Left knee end-stage degenerative joint disease. POSTOPERATIVE DIAGNOSIS: Left knee end-stage degenerative joint disease. SURGEON: Dr. Corey Rojo. HUMAN SERVICES SUPERVISOR: 1. Dr. Haris Archibald. 2.. Torsten Carter DO OPERATION PERFORMED: Left total knee arthroplasty. ANESTHESIA TYPE: General with preprocedural regional block and intraoperative capsular block. ESTIMATED BLOOD LOSS: 100 mL. SPECIMENS REMOVED: None. COMPLICATIONS: None. TOURNIQUET TIME: 65 minutes at 300 mmHg. CONDITION: The patient is stable to PACU. IMPLANTS: [employer] Evolution total knee system: 1. Seven medial pivot femoral component. 2. Seven medial pivot tibial baseplate. 3. A 12 mm polyethylene insert. 4. A 35 mm polyethylene patella. INDICATION FOR PROCEDURE: The patient is a pleasant 84-year-old male with [address] [address] OPERATIVE REPORT Name: KEAGAN HERNANDEZ Room: [place] [address] ADM IN M.R.#: [id number] Admission: 04/20/20 Attend Phys: Ching Flood Discharge: Date of : 39 Report #: [id number] longstanding left knee pain for quite some time. All conservative measures have failed to give him significant relief. The discomfort is starting to affect of his activities of daily living and quality of life. Radiographs showed end-stage degenerative changes mostly confined to the medial compartment, the patellofemoral compartment. Turning into varus deformity recommendation was made for total knee arthroplasty. We discussed the alternatives, benefits and risks to include, but not limited to damage to neurovascular structures, continuation of pain, intraoperative postoperative fracture, failure of implants, postoperative DVT, pulmonary embolism, CA or any other imponderables secondary to being taken back to the operative suite. The patient expressed understanding of the aforementioned and wished to proceed. DESCRIPTION OF PROCEDURE: The patient was met in the preoperative area. The correct side was marked. He was then taken back to the operative suite and transferred in supine position on a well-padded operative table. He was given the benefit of general anesthesia. A well-padded tourniquet was applied to the left proximal thigh. The left lower extremity was then sterilely prepped and draped in normal standard fashion. Timeout was performed, which correct patient, side, site, procedure to be performed and antibiotics in the form of 2 grams Ancef being administered was agreed upon by all participation. Left lower extremity was elevated for exsanguination and the tourniquet was taken to 300 mmHg. Ultimately inflated for a total of 65 minutes throughout the case. Midline incision was taken down through the skin and subcutaneous tissues developed in the medial and lateral subcutaneous sleeves. A new knife was taken to the capsule to form a medial parapatellar arthrotomy. Patella was everted after developing the medial and lateral subperiosteal sleeves. Knee was taken into maximal flexion. The intramedullary femoral drill was used followed by the intramedullary femoral component. This was set at 5 degrees valgus for the left. This was pinned in place. Depth was verified with lorie wing. The distal femoral cut was made. The distal femoral guide was removed. The AP sizer of the femur was then taken and placed on the posterior femoral condyle, sized to be a 7, the distal femoral 4-in-1 cutting block was placed and pinned. The anterior, posterior and anterior and posterior chamfer cuts were made. The pins were removed and the 4-in-1 cutting guide was removed. All excess osteophytes were removed. The peripheral tibial adhesions in the meniscus were then removed. A PCL retractor was placed and the tibia was carried forward. The extramedullary tibial guide was placed and pinned into place, taking approximately 10 mm off the medial cut, but this was measured with lorie wing height and pinned into place. The tibial cut was made. The remainder of the medial and lateral meniscus were excised along with the cruciates. Tibia was sized to be approximately a size 7. This was pinned into place. The size 7 femur was malleted on and the anterior patellar groove was cut with the protective sleeve in place. A size 12 mm polyethylene insert was placed and this was felt to have good symmetry balance. Attention was then taken to the patella. Electrocautery was used to denervate the periphery of the patella. Patella was cut freehand measuring 23 mm before the cut and 15 mm afterwards. [address] [address] OPERATIVE REPORT Name: KEAGAN HERNANDEZ Room: [address] IN [employer]bay.Jaya.#: [id number] Admission: 04/20/20 Attend Phys: Ching Flood Discharge: Date of : 39 Report #: [id number] This was sized to be a size 35. The patella clamp was applied and the 3 patellar peg holes were cut. The patella and all the trial components were taken through range of motion. Full extension to flexion with no deficits. He was stable to varus and valgus at all degrees of motion and had good mid flexion stability to anterior drawer and posterior drawer. Patella tracked appropriately. These components were felt to be appropriate at least sized for the individual, the finals were pulled. The trial femur and patellar button were removed. Attention was then taken to the tibia. The intramedullary part of the tibia was opened with a guide tower with a reamer followed by punch. These were all then removed. The bone ends of the tibia, femur, and patella were all irrigated under pulse lavage. Cement was mixed on the back table and applied to the bony surfaces as well as the backs of the implants. Final implants were malleted into place. The cement was allowed to harden and set up with a size 14 polyethylene insert under pressure. The cement was appropriately solidified. The 14 mm polyethylene insert was removed. A size 12 trial was then placed. This was felt to have the best varus valgus stability, full extension and flexion from the knee. This was removed. Pulsavac was performed to the tibial baseplate. All excess cement and soft tissue was excised. The final size 12 polyethylene insert was malleted into place with good final seating. Femur was used on the tibia. The capsule was thoroughly irrigated and lavaged with the intracapsular block being administered. Simple interrupted 1-0 Vicryl was used to approximate the capsule, followed by #1 running Stratafix suture. The capsule was irrigated followed by inverted interrupted 2-0 Vicryl followed by a running 3-0 Stratafix. Dermabond was applied to the incision followed by sterile Mepilex. The patient was awoken from general anesthesia and taken to the postanesthesia care unit in stable condition after all sponge and needle counts were correct x 2. The patient was in stable condition. By: [id number] Rojo DO /luis alberto
[2020-04-20 08:48] VITALS: BP 115/53
[2020-04-20 16:49] VITALS: BP 96/65
[2020-04-20 20:40] VITALS: BP 100/47
[2020-04-21] VITALS: BP 94/41
[2020-04-21 04:00] VITALS: BP 104/38
[2020-04-21 09:19] VITALS: BP 96/48
[2020-04-21 09:44] VITALS: BP 96/48
[2020-04-21 10:19] LABS: HEMATOCRIT 30.3 % (42.0-52.0); HEMOGLOBIN 10.2 gm/dL (14.0-18.0)
== END 2020-04-21 12:20 | disposition home health service (06) ==
LOC: M.PRE → M.TBA 06:31 → M.ORTHSURG 06:31 → M.TBA 06:31 → M.PRE 10:34 → M.TBA 11:16 → M.PRE 11:51 → M.ORTHSURG 16:30
PROVIDERS: Orthopaedic Surgery; ADMIT Internal Medicine; ATTEND Internal Medicine
DX: M17.12 Unilateral primary osteoarthritis, left knee (principal); N18.4 Chronic kidney disease, stage 4 (severe); R63.0 Anorexia; R07.89 Other chest pain; G89.29 Other chronic pain; K63.5 Polyp of colon; L29.9 Pruritus, unspecified; I49.5 Sick sinus syndrome; R53.1 Weakness; J18.9 Pneumonia, unspecified organism; I50.20 Unspecified systolic (congestive) heart failure; I48.91 Unspecified atrial fibrillation; M81.0 Age-related osteoporosis without current pathological fracture; Z95.810 Presence of automatic (implantable) cardiac defibrillator; Z98.890 Other specified postprocedural states; Z79.82 Long term (current) use of aspirin; Z79.899 Other long term (current) drug therapy

== ENCOUNTER → 2020-08-17 | Outpatient (CLI) | payer MEDICARE, OTHER ==
[~2020-08-17] MED LIST changes: +TRAMADOL 50 MG50 MG PO
== END ==
LOC: M.PC 08:07
PROVIDERS: ATTEND Anesthesiology Pain Medicine
DX: M54.5 Low back pain (principal); I50.9 Heart failure, unspecified; N18.4 Chronic kidney disease, stage 4 (severe); Z79.899 Other long term (current) drug therapy; Z88.8 Allergy status to other drugs, medicaments and biological substances; Z95.0 Presence of cardiac pacemaker

== ENCOUNTER → 2020-08-22 | Outpatient (CLI) | payer MEDICARE, OTHER | END | disposition home or self-care (01) | LOC: M.PC 09:15 | PROVIDERS: ATTEND Anesthesiology Pain Medicine | DX: M54.16 Radiculopathy, lumbar region (principal); M54.5 Low back pain; I50.20 Unspecified systolic (congestive) heart failure; N18.4 Chronic kidney disease, stage 4 (severe); M81.0 Age-related osteoporosis without current pathological fracture; I48.91 Unspecified atrial fibrillation; M10.9 Gout, unspecified; R00.0 Tachycardia, unspecified; I95.0 Idiopathic hypotension; E03.9 Hypothyroidism, unspecified; I44.7 Left bundle-branch block, unspecified; N40.0 Benign prostatic hyperplasia without lower urinary tract symptoms; K92.2 Gastrointestinal hemorrhage, unspecified; Z91.018 Allergy to other foods; Z95.0 Presence of cardiac pacemaker ==

== ENCOUNTER → 2020-10-31 | Outpatient (CLI) | payer MEDICARE, OTHER | LOC: M.PC 10:55 | PROVIDERS: ATTEND Anesthesiology Pain Medicine | DX: M54.16 Radiculopathy, lumbar region (principal); N18.4 Chronic kidney disease, stage 4 (severe); I48.91 Unspecified atrial fibrillation; M10.9 Gout, unspecified; R00.0 Tachycardia, unspecified; I50.20 Unspecified systolic (congestive) heart failure; M81.0 Age-related osteoporosis without current pathological fracture; I95.0 Idiopathic hypotension; E03.9 Hypothyroidism, unspecified; I44.7 Left bundle-branch block, unspecified; N40.0 Benign prostatic hyperplasia without lower urinary tract symptoms; K92.2 Gastrointestinal hemorrhage, unspecified; Z95.0 Presence of cardiac pacemaker; Z98.890 Other specified postprocedural states; Z68.31 Body mass index [BMI] 31.0-31.9, adult; Z88.8 Allergy status to other drugs, medicaments and biological substances; Z79.891 Long term (current) use of opiate analgesic; Z79.899 Other long term (current) drug therapy ==

== ENCOUNTER → 2020-11-07 | Outpatient (CLI) | payer MEDICARE, OTHER ==
[~2020-11-07] MED LIST changes: +LEVO-T50 MCG PO; +MULTI-VITAMIN1 EAC5 PO
== END | disposition home or self-care (01) ==
LOC: M.PC 08:16
PROVIDERS: ATTEND Anesthesiology Pain Medicine
DX: M54.16 Radiculopathy, lumbar region (principal); G89.29 Other chronic pain; N18.4 Chronic kidney disease, stage 4 (severe); I50.20 Unspecified systolic (congestive) heart failure; I48.91 Unspecified atrial fibrillation; E03.9 Hypothyroidism, unspecified; M81.0 Age-related osteoporosis without current pathological fracture; N40.0 Benign prostatic hyperplasia without lower urinary tract symptoms; M10.9 Gout, unspecified; Z98.890 Other specified postprocedural states; Z79.899 Other long term (current) drug therapy; Z79.01 Long term (current) use of anticoagulants; Z95.0 Presence of cardiac pacemaker; Z88.8 Allergy status to other drugs, medicaments and biological substances

== ENCOUNTER → 2020-12-26 | Outpatient (CLI) | payer MEDICARE, OTHER | END | disposition home or self-care (01) | LOC: M.PC 08:00 | PROVIDERS: ATTEND Anesthesiology Pain Medicine | DX: M54.16 Radiculopathy, lumbar region (principal); G89.29 Other chronic pain; E03.9 Hypothyroidism, unspecified; I48.91 Unspecified atrial fibrillation; N40.0 Benign prostatic hyperplasia without lower urinary tract symptoms; N18.4 Chronic kidney disease, stage 4 (severe); M81.0 Age-related osteoporosis without current pathological fracture; M10.9 Gout, unspecified; I50.9 Heart failure, unspecified; Z98.890 Other specified postprocedural states; Z79.899 Other long term (current) drug therapy; Z95.0 Presence of cardiac pacemaker; Z88.8 Allergy status to other drugs, medicaments and biological substances ==

== ENCOUNTER → 2021-03-06 | Outpatient (CLI) | payer MEDICARE, OTHER | END | disposition home or self-care (01) | LOC: M.PC 08:19 | PROVIDERS: ATTEND Anesthesiology Pain Medicine | DX: M54.16 Radiculopathy, lumbar region (principal); G89.29 Other chronic pain; N18.4 Chronic kidney disease, stage 4 (severe); I50.22 Chronic systolic (congestive) heart failure; I48.91 Unspecified atrial fibrillation; E03.9 Hypothyroidism, unspecified; M81.0 Age-related osteoporosis without current pathological fracture; N40.0 Benign prostatic hyperplasia without lower urinary tract symptoms; M10.9 Gout, unspecified; Z98.890 Other specified postprocedural states; Z79.899 Other long term (current) drug therapy; Z79.01 Long term (current) use of anticoagulants; Z95.0 Presence of cardiac pacemaker ==

== ENCOUNTER → 2021-03-07 | Outpatient (CLI) | payer MEDICARE, OTHER | LOC: M.RAD 14:14 | PROVIDERS: ATTEND Family Medicine | DX: M85.88 Other specified disorders of bone density and structure, other site (principal); M81.0 Age-related osteoporosis without current pathological fracture ==

== ENCOUNTER → 2021-05-08 | Outpatient (CLI) | payer MEDICARE, OTHER | END | disposition home or self-care (01) | LOC: M.PC 09:39 | PROVIDERS: ATTEND Anesthesiology Pain Medicine | DX: M54.16 Radiculopathy, lumbar region (principal); G89.29 Other chronic pain; I50.20 Unspecified systolic (congestive) heart failure; N18.4 Chronic kidney disease, stage 4 (severe); I48.91 Unspecified atrial fibrillation; E03.9 Hypothyroidism, unspecified; M81.0 Age-related osteoporosis without current pathological fracture; M10.9 Gout, unspecified; N40.0 Benign prostatic hyperplasia without lower urinary tract symptoms; Z98.890 Other specified postprocedural states; Z79.899 Other long term (current) drug therapy; Z79.01 Long term (current) use of anticoagulants; Z95.0 Presence of cardiac pacemaker ==

== ENCOUNTER → 2021-06-28 | Outpatient (CLI) | payer MEDICARE, OTHER | END | disposition home or self-care (01) | LOC: M.PC 10:08 | PROVIDERS: ATTEND Anesthesiology Pain Medicine | DX: M54.16 Radiculopathy, lumbar region (principal); G89.29 Other chronic pain; Z98.890 Other specified postprocedural states; Z79.899 Other long term (current) drug therapy; Z88.8 Allergy status to other drugs, medicaments and biological substances ==

== ENCOUNTER → 2021-08-21 | Outpatient (CLI) | payer MEDICARE, OTHER | LOC: M.PC 10:10 | PROVIDERS: ATTEND Anesthesiology Pain Medicine | DX: M79.18 Myalgia, other site (principal); M81.0 Age-related osteoporosis without current pathological fracture; I50.9 Heart failure, unspecified; I48.91 Unspecified atrial fibrillation; M10.9 Gout, unspecified; E03.9 Hypothyroidism, unspecified; M54.16 Radiculopathy, lumbar region; N18.4 Chronic kidney disease, stage 4 (severe); Z79.899 Other long term (current) drug therapy; Z98.890 Other specified postprocedural states ==

== ENCOUNTER → 2021-10-02 | Outpatient (CLI) | payer MEDICARE, OTHER | END | disposition home or self-care (01) | LOC: M.PC 09-27 08:00 | PROVIDERS: ATTEND Anesthesiology Pain Medicine | DX: M54.16 Radiculopathy, lumbar region (principal); G89.29 Other chronic pain; N18.4 Chronic kidney disease, stage 4 (severe); I50.20 Unspecified systolic (congestive) heart failure; I48.91 Unspecified atrial fibrillation; M81.0 Age-related osteoporosis without current pathological fracture; E03.9 Hypothyroidism, unspecified; N40.0 Benign prostatic hyperplasia without lower urinary tract symptoms; M10.9 Gout, unspecified; Z98.890 Other specified postprocedural states; Z79.899 Other long term (current) drug therapy; Z79.01 Long term (current) use of anticoagulants; Z96.652 Presence of left artificial knee joint; Z95.0 Presence of cardiac pacemaker; Z88.8 Allergy status to other drugs, medicaments and biological substances ==